=== PATIENT | female | born 1975 | race Caucasian/White ===

== ENCOUNTER 2019-01-21 13:11 | Emergency (ER) | payer OTHER ==
[~2019-01-21] VITALS: Ht 157.5 cm; Wt 61.2 kg
--- OUTSIDE RECORDS SUMMARY | 2019-01-21 14:22 | XMS ---
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 EEmerson VISIT COUNT (12 MO.) [address] [place] [address] Beau Mcgovern Kwame [address] [place] [address] TOTAL 11 NOTE: Visits indicate total known visits. ED/UCC VISIT TRACKING (12 MO.) 01/21/2019 14:19 [facility] [place] TYPE: Emergency COMPLAINT: - FELL, HURT ELBOW 01/05/2019 14:24 [facility] [place] TYPE: Emergency DIAGNOSES: - Cannabis abuse with other cannabis-induced disorder - Anxiety - Vomiting - Epigastric pain - Dehydration - Constipation, unspecified - Anxiety disorder, unspecified - Hypokalemia 01/02/2019 16:52 [facility] [place] TYPE: Emergency DIAGNOSES: - abd pain vomiting 11/05/2018 09:[address] [facility] [place] TYPE: Emergency DIAGNOSES: - Epigastric pain - Nausea with vomiting, unspecified - vomiting 11/02/2018 08:40 [facility] [place] [facility] [place] TYPE: Emergency DIAGNOSES: - Generalized abdominal pain - Nausea with vomiting, unspecified - VOMITING BLOOD 11/01/2018 19:47 [facility] [place] TYPE: Emergency DIAGNOSES: - VOMITING ABD PAIN 10/22/2018 11:38 [facility] [place] TYPE: Emergency DIAGNOSES: - Otalgia, right ear - R EAR PAIN - Unspecified hearing loss, bilateral - Presence of external hearing-aid - Abrasion of right ear, initial encounter 04/13/2018 11:00 [facility] [place] TYPE: Emergency DIAGNOSES: - ANXIETY ATTACK - Opioid dependence with withdrawal 04/02/2018 09:51 [facility] [place] TYPE: Emergency DIAGNOSES: - Anxiety disorder, unspecified - Nausea with vomiting, unspecified - SOB 03/25/2018 13:05 [facility] DIAGNOSES: - NEED PAIN MEDS - Residual hemorrhoidal skin tags 03/21/2018 15:09 [facility] [place] TYPE: Emergency DIAGNOSES: - Residual hemorrhoidal skin tags - HERNIA/KNEE PAIN INPATIENT VISIT TRACKING (12 MO.) No inpatient visits to display in this time frame [email or web address]
== END 2019-01-21 16:13 | disposition home or self-care (01) ==
LOC: ED 13:11
DX: S53.402A Unspecified sprain of left elbow, initial encounter (principal); Z88.6 Allergy status to analgesic agent; X50.1XXA Overexertion from prolonged static or awkward postures, initial encounter
CPT/HCPCS: 73080; 99283

== ENCOUNTER 2024-05-13 16:00 | Emergency (ER) | payer OTHER ==
[~2024-05-13] VITALS: Ht 157.5 cm; Wt 49.0 kg
--- OUTSIDE RECORDS SUMMARY | 2024-05-13 16:07 | XMS ---
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 Events No recent Security Events currently on file CRITERIA MET - 6 ED Visits in 6 Months - [facility] - 3 Facilities in 90 Days CARE PROVIDERS IVAN SOFIA Clarifier Operator Helper 08/05/2021-Current PHONE: [phone] [facility]: [facility] 09/08/2020-[facility] \F\ [facility] PHONE: [phone] NATALYA FOWLER Community Health Worker 05/27/2019-Current PHONE: [phone] [facility]: [facility] Current WORK[facility] PHONE: [phone] Victor Hugo has no Care Guidelines for this patient. Care History Medical/Surgical 01/22/2019 [facility] \R\-[facility] [phone]. E.D. VISIT COUNT (12 MO.) [address] [address] [facility] [place] TOTAL 7 NOTE: Visits indicate total known visits. ED/UCC VISIT TRACKING (12 MO.) 05/13/2024 16:00 [facility] [place] TYPE: Emergency COMPLAINT: - PELVIC/RIB PAIN 04/11/2024 00:41 [facility] [place] TYPE: Emergency COMPLAINT: - trauma DIAGNOSES: - trauma 02/25/2024 22:24 [facility] [place] TYPE: Emergency DIAGNOSES: - Cellulitis of left upper limb - Cutaneous abscess of left hand - HAND SWELLING [facility]24[facility]2024 23[facility] DIAGNOSES: - Cellulitis, unspecified - Bug Bite - Skin Redness With Swelling 12/04/2023 10:24 [facility] [place] TYPE: Emergency DIAGNOSES: - Other psychoactive substance abuse, uncomplicated - SICK 12/02/2023 03:00 [facility] [place] TYPE: Emergency DIAGNOSES: - Encephalopathy, unspecified - Hallucinogen abuse, uncomplicated - Opioid abuse, uncomplicated - Other stimulant abuse, uncomplicated - Abdominal Pain 10/16/2023 16:34 [facility] [place] TYPE: Emergency COMPLAINT: - L WRIST INJURY DIAGNOSES: - L WRIST INJURY INPATIENT VISIT TRACKING (12 MO.) 04/11/2024 00:41 [facility] [place] TYPE: Surgery DIAGNOSES: - Concussion with loss of consciousness status unknown, initial encounter - Contusion of lung, unilateral, initial encounter - Fracture of unspecified parts of lumbosacral spine and pelvis, initial encounter for closed fracture - Multiple fractures of ribs, right side, initial encounter for closed fracture - Traumatic pneumothorax, initial encounter - trauma 02/25/2024 22:24 [facility] [place] TYPE: Medical Surgical DIAGNOSES: - Cellulitis of left upper limb - Cutaneous abscess of left hand [email or web address]
[2024-05-13 16:23] LABS: BILIRUBIN, URINE NEGATIVE (negative); BLOOD/HGB, URINE TRACE-I (Negative); KETONE, URINE NEGATIVE (Negative); LEUK ESTERASE, URINE SMALL (negative); NITRITE, URINE NEGATIVE (negative); PH, URINE 6.5 (5-7)
[2024-05-13 16:37] LABS: CRYSTALS, URINE TRIPLE PHOSPHATE 2+ (0-1+); EPITHELIAL CELLS, URINE SQUAMOUS 1+ /lpf (0-1+); WHITE BLOOD CELLS, URINE 41-50 /HPF (0-5)
[2024-05-13 16:38] LABS: BACTERIA, URINE 3+ /hpf (negative); CASTS, URINE NONE SEEN \\lpf; COLLECTION TYPE, URINE CLEAN CATCH; REFLEX CULTURE, URINE Yes (No)
[2024-05-13] MEDS ORDERED: NITROFURANTOIN MONOHYD MACROCR 100 MG CAP PO ONE (17:15)
[2024-05-13] MEDS ORDERED: MACROBID 100 M100 MG PO (17:42)
[2024-05-13 17:45] VITALS: BP 135/87
[2024-05-13] MEDS ORDERED: IBUPROFEN 400 MG TAB PO ONE (17:45)
== END 2024-05-13 17:45 | disposition home or self-care (01) ==
LOC: ED 16:00
PROVIDERS: Emergency Medicine
DX: N39.0 Urinary tract infection, site not specified (principal); R10.2 Pelvic and perineal pain; Z88.0 Allergy status to penicillin; Z88.5 Allergy status to narcotic agent; Z88.8 Allergy status to other drugs, medicaments and biological substances
CPT/HCPCS: 71046; 72170; 81001; 87077; 87088; 99283-25